=== PATIENT | male | born 1970 | race Two or more races ===

== ENCOUNTER 2019-09-01 03:17 | Emergency (ER) | payer OTHER ==
[~2019-09-01] VITALS: Ht 174 cm; Wt 88.0 kg
--- NOTE | 2019-09-01 03:37 | NUR ---
BIB EMS FROM [facility] C/O MIDSTERNAL CP and R FLANK PAIN X15 MIN TELEPHONE SERVICE REPRESENTATIVE. NO SOB. NO N/V. PT WAS PLACED ON A MONITOR, VS OBTAINED . WILL CONT TO MONITOR ,
[2019-09-01 03:46] LABS: BASOPHILS # (AUTO) 0.1 /CMM (0.0-0.2); EOSINOPHILS % (AUTO) 5.1 % (0.0-6.0); HEMATOCRIT 49 % (39-51); HEMOGLOBIN 16.5 g/dL (13.5-17.5); LYMPHOCYTES % (AUTO) 27.5 % (20.0-44.0); MEAN CORPUSCULAR HGB CONC 34 g/dl (31.0-36.0); MEAN CORPUSCULAR VOLUME 89 fL (80-96); MONOCYTES % (AUTO) 9.2 % (2.0-12.0); NEUTROPHILS # (AUTO) 6.3 /CMM (1.8-8.9); NEUTROPHILS % (AUTO) 57.2 % (43.0-81.0); PLATELET COUNT (AUTO) 261 /CMM (150-450); RED BLOOD CELL COUNT(AUTO) 5.42 MIL/uL (4.5-6.0)
[2019-09-01 03:47] LABS: CALCIUM, SERUM 9.3 mg/dL (8.5-10.1); CARBON DIOXIDE 29 mmol/L (21-32); CHLORIDE 98 mmol/L (98-107); GLUCOSE 155 mg/dL (74-106); POTASSIUM 4.4 mmol/L (3.5-5.1); SODIUM SERUM 134 mmol/L (136-145); UREA NITROGEN, BLOOD 15 mg/dL (7-18)
[2019-09-01] MEDS ORDERED: ASPIRIN 81 MG TAB.CHEW PO ONE (04:00)
[2019-09-01] MEDS ORDERED: NITROGLYCERIN 0.4 MG/TAB BOTTLE SL ONE (04:00)
[2019-09-01] MEDS ORDERED: ASPIRIN 81 MG TAB.CHEW ONE (04:00)
[2019-09-01] MEDS ORDERED: NITROGLYCERIN 0.4 MG/TAB BOTTLE ONE (04:00)
--- NOTE | 2019-09-01 04:00 | NUR ---
PENSIONS RETIREMENT PLAN SPECIALIST AT BEDSIDE
--- NOTE | 2019-09-01 04:25 | NUR ---
PT IN BED AWAKE AND RESPONSIVE. PT IS EXPLAINING THE PAIN MOSTLY ON HIS R ABDOMEN AND HIS R BACK. ENDORSING THAT HE HAS HX OF RENAL DISEASE W/ CHRONIC BACK PAIN AND NEWLY DIAGNOSED WITH LIVER CANCER. VSS. ON ONGOING MONITORING.
[2019-09-01 04:27] LABS: ALBUMIN 3.5 g/dL (3.4-5.0); BILIRUBIN,DIRECT 0.1 mg/dL (0.0-0.2); BILIRUBIN,TOTAL 0.5 mg/dL (0.2-1.0); TOTAL PROTEIN, SERUM 8.4 g/dL (6.4-8.2)
--- NOTE | 2019-09-01 05:15 | NUR ---
Patient is resting comfortably in bed with eyes closed. Easily aroused. VSS
--- NOTE | 2019-09-01 06:04 | NUR ---
SPOKE TO LIZA WHITTAKER AND INFORMED HER ABOUT PT'S DISCHARGE STATUS
--- NOTE | 2019-09-01 06:07 | NUR ---
ambulance eta [id number], trip number:[id number].
--- NOTE | 2019-09-01 07:06 | NUR ---
Patient is resting comfortably in bed with eyes opened. VSS. 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
--- NOTE | 2019-09-01 07:53 | NUR ---
Patient is resting comfortably in bed with eyes closed. Easily aroused. VSS
[2019-09-01 08:42] VITALS: BP 147/96
--- NOTE | 2019-09-01 08:42 | NUR ---
REPORT GIVEN TO CLINICAL RESEARCH MANAGEMENT ASSOCIATE. PATIENT A/OX4, DENIES CHEST PAIN. NO DISTRESS NOTED. PATIENT LEFT IN STABLE CONDITION. IV removed. Catheter intact and site benign. Pressure and 4x4 applied to site. No bleeding noted.
== END 2019-09-01 08:44 ==
LOC: ER 03:19
DX: R07.89 Other chest pain (principal); I10 Essential (primary) hypertension; E11.9 Type 2 diabetes mellitus without complications; F20.9 Schizophrenia, unspecified; F32.9 Major depressive disorder, single episode, unspecified
CPT/HCPCS: 36415; 71045-TC; 80048-TC; 80076-TC; 84484-TC; 85025-TC